=== PATIENT | female | born 1990 | race American Indian/Alaskan Native ===

== ENCOUNTER 2022-02-11 10:51 | Emergency (ER) | payer MEDICAID ==
[2022-02-11 11:21] VITALS: BP 127/96
--- NOTE | 2022-02-11 11:36 | Emergency Department Report ---
- General Chief Complaint: Upper Respiratory Infection Stated Complaint: CHILLS,BODYACHES,COUGH Time Seen by Provider: 02/11/22 11:30 Source: patient Mode of arrival: Ambulatory Limitations: No Limitations - History of Present Illness Initial Comments: This is a pleasant 31-year-old female presents the emergency department with chief complaint of cough, congestion, generalized body aches and malaise that has been present over the past 2 to 3 days. She denies any known past medical history, current medication use or known allergies to medications. Her immunizations are up-to-date. She took 2 Covid test at home that were both negative. - Related Data Previous Rx's Medication Instructions Recorded Last Taken Type Benzonatate [Tessalon Perles] 100 mg PO Q8HR #21 cap 02/11/22 Unknown Rx Ibuprofen [Motrin 600 MG tab] 1 tab PO Q6HR #30 02/11/22 Unknown Rx Allergies Allergy/AdvReac Type Severity Reaction Status Date / Time Penicillins Allergy Anaphylaxis Verified 02/11/22 11:22 ED Review of Systems ROS: Stated complaint: CHILLS,BODYACHES,COUGH Other details as noted in HPI Comment: All other systems reviewed and negative Constitutional: denies: chills, fever Eyes: denies: eye pain, eye discharge, vision change ENT: as per HPI, congestion. denies: ear pain, throat pain Respiratory: see HPI, cough. denies: shortness of breath, wheezing Cardiovascular: denies: chest pain, palpitations Endocrine: no symptoms reported Gastrointestinal: denies: abdominal pain, nausea, diarrhea Genitourinary: denies: urgency, dysuria, discharge Musculoskeletal: as per HPI, myalgia. denies: back pain, joint swelling, arthralgia Skin: denies: rash, lesions Neurological: denies: headache, weakness, paresthesias Psychiatric: denies: anxiety, depression Hematological/Lymphatic: denies: easy bleeding, easy bruising ED Past Medical Hx - Medications Home Medications: Home Medications Medication Instructions Recorded Confirmed Last Taken Type Benzonatate [Tessalon Perles] 100 mg PO Q8HR #21 cap 02/11/22 Unknown Rx Ibuprofen [Motrin 600 MG tab] 1 tab PO Q6HR #30 02/11/22 Unknown Rx ED Physical Exam - General Limitations: No Limitations General appearance: alert, in no apparent distress - Head Head exam: Present: atraumatic, normocephalic - Eye Eye exam: Present: normal appearance, PERRL, EOMI Pupils: Present: normal accommodation - ENT ENT exam: Present: normal exam, normal orophraynx, mucous membranes moist, TM's normal bilaterally - Neck Neck exam: Present: normal inspection, full ROM. Absent: tenderness, meningismus - Respiratory Respiratory exam: Present: normal lung sounds bilaterally. Absent: respiratory distress, wheezes, rales, rhonchi, stridor - Cardiovascular Cardiovascular Exam: Present: regular rate, normal rhythm, normal heart sounds. Absent: systolic murmur, diastolic murmur, rubs, gallop - GI/Abdominal GI/Abdominal exam: Present: soft, normal bowel sounds - Extremities Exam Extremities exam: Present: normal inspection, full ROM, normal capillary refill. Absent: tenderness, calf tenderness (No posterior calf tenderness, negative Homans' sign bilaterally.) - Back Exam Back exam: Present: normal inspection, full ROM. Absent: tenderness, CVA tenderness (R), CVA tenderness (L) - Neurological Exam Neurological exam: Present: alert, oriented X3, normal gait - Psychiatric Psychiatric exam: Present: normal affect, normal mood - Skin Skin exam: Present: warm, dry, intact, normal color. Absent: rash ED Course Vital Signs 02/11/22 02/11/22 02/11/22 11:19 11:20 11:21 Temperature 98.5 F Pulse Rate 81 80 Respiratory 16 Rate Blood Pressure 127/96 O2 Sat by Pulse 95 95 Oximetry ED Medical Decision Making - Medical Decision Making Patient nontoxic no acute distress. Vital signs are stable. She is PERC negative and a low risk by Wells criteria for PE making this unlikely. Symptoms are consistent with a virus educated this could be still related to Covid even though she had 2 negative antigen test at home or influenza and recommend she continue to wear her mask, frequently wash her hands and adhere to CDC guidelines for social distancing. I will treat the patient with supportive treatment and recommend return the emerge from any change or worsening symptoms. She verbalized understand the diagnosis, treatment plan and follow-up instructions and all of her questions were answered. - Differential Diagnosis Influenza, viral respiratory infection, COVID-19 Critical care attestation.: If time is entered above; I have spent that time in minutes in the direct care of this critically ill patient, excluding procedure time. ED Disposition Clinical Impression: Viral upper respiratory tract infection Disposition: HOME / SELF CARE / HOMELESS Is pt being admited?: No Condition: Stable Instructions: Viral Respiratory Infection Prescriptions: Ibuprofen [Motrin 600 MG tab] 1 tab PO Q6HR #30 Benzonatate [Tessalon Perles] 100 mg PO Q8HR #21 cap Referrals[facility] [Provider Group] - 3-5 Days
== END 2022-02-11 12:16 | disposition home or self-care (01) ==
LOC: ED 10:51
DX: J06.9 Acute upper respiratory infection, unspecified (principal); Z88.6 Allergy status to analgesic agent
CPT/HCPCS: 99282